=== PATIENT | female | born 1960 | race African-American/Black ===

== ENCOUNTER 2017-03-04 21:36 | Emergency (ER) | payer OTHER ==
[~2017-03-04] VITALS: Ht 175.3 cm; Wt 63.6 kg
[2017-03-04] MEDS ORDERED: TRAM50TA4 PO (21:48)
[2017-03-04] MEDS ORDERED: AMLO2.5T PO (21:48)
[2017-03-04] MEDS ORDERED: GABA-529 PO (21:48)
[2017-03-04] MEDS ORDERED: LORA10TA7 PO (21:48)
[2017-03-04] MEDS ORDERED: ASPI81TA39 PO (21:48)
[2017-03-04] MEDS ORDERED: METO25 PO (21:48)
[2017-03-04] MEDS ORDERED: PARO10TA89 PO (21:48)
[2017-03-04 21:58] LABS: GLUCOSE,POINT OF CARE 97 MG/DL (70-110)
[2017-03-04 23:02] VITALS: BP 132/79
== END 2017-03-04 23:46 | disposition home or self-care (01) ==
LOC: EMS 21:39
DX: S00.03XA Contusion of scalp, initial encounter (principal); F10.129 Alcohol abuse with intoxication, unspecified; I10 Essential (primary) hypertension; F14.90 Cocaine use, unspecified, uncomplicated; F17.210 Nicotine dependence, cigarettes, uncomplicated; Y90.3 Blood alcohol level of 60-79 mg/100 ml; W18.39XA Other fall on same level, initial encounter; Y93.89 Activity, other specified; Y92.89 Other specified places as the place of occurrence of the external cause; Y99.8 Other external cause status
CPT/HCPCS: 36415; 70450; 71010; 72125; 73030; 82962; 99285; G0480

== ENCOUNTER 2017-04-08 12:29 | Emergency (ER) | payer OTHER ==
[~2017-04-08] VITALS: Ht 175.3 cm; Wt 68.2 kg
[~2017-04-08 12:29] MED LIST: AMLO2.5T PO; ASPI81TA39 PO; GABA-529 PO; LORA10TA7 PO; METO25 PO; PARO10TA89 PO; TRAM50TA4 PO
[2017-04-08] MEDS ORDERED: HYDROCODONE/ACETAMINOPHEN 5-325 MG TABLET PO ONE (14:15)
[2017-04-08 17:24] VITALS: BP 132/88
== END 2017-04-08 18:30 | disposition home or self-care (01) ==
LOC: EMS 12:30
DX: S51.0 Open wound of elbow (principal); I10 Essential (primary) hypertension; F17.210 Nicotine dependence, cigarettes, uncomplicated; F14.90 Cocaine use, unspecified, uncomplicated; Y04.2XXA Assault by strike against or bumped into by another person, initial encounter; Y93.89 Activity, other specified; Y92.830 Public park as the place of occurrence of the external cause; Y99.8 Other external cause status
CPT/HCPCS: 99284

== ENCOUNTER 2017-04-08 20:56 | Emergency (ER) | payer OTHER ==
[~2017-04-08] VITALS: Ht 170.2 cm; Wt 70.5 kg
[2017-04-08 22:23] LABS: BASOPHILS % (AUTO) 0.5 % (0.0-2.0); EOSINOPHILS % (AUTO) 0.5 % (1.0-6.0); LYMPHOCYTES # (AUTO) 1.5 K/uL (1.0-4.8); LYMPHOCYTES % (AUTO) 30.3 % (22.0-44.0); MEAN CORPUSCULAR HEMOGLOBIN 32.7 pg (26.0-34.0); MEAN CORPUSCULAR HGB CONC 34.2 G/dL (31.0-37.0); MEAN CORPUSCULAR VOLUME 96 fL (80-100); MONOCYTES # (AUTO) 0.5 K/uL (0.1-1.0); MONOCYTES % (AUTO) 10.3 % (2.0-9.0); NEUTROPHILS % (AUTO) 58.4 % (40.0-70.0); PLATELET COUNT (AUTO) 196 K/uL (150-450); RED BLOOD CELL COUNT(AUTO) 3.66 MIL/uL (4.00-5.20); WHITE BLOOD COUNT (AUTO) 5.1 K/uL (4.5-11.0)
[2017-04-08 22:32] LABS: ANION GAP 9 mmol/L (8-16); CALCIUM, TOTAL 9.2 mg/dL (8.8-10.5); CARBON DIOXIDE 30 mmol/L (22-29); CHLORIDE 100 mmol/L (98-107); GLOMERULAR FILTR. RATE CALC > 60 mL/min (>60); SODIUM SERUM 139 mmol/L (136-145); UREA NITROGEN, BLOOD 16 mg/dL (7-18)
[2017-04-08 22:37] LABS: ALANINE AMINOTRANSFERASE 38 U/L (12-78); ALBUMIN 4.4 g/dL (3.4-5.0); ASPARTATE AMINOTRANSFERASE 30 U/L (15-37); BILIRUBIN,TOTAL 0.7 mg/dL (0.1-1.0); TOTAL PROTEIN, SERUM 8.1 g/dL (6.4-8.2)
[2017-04-09] MEDS ORDERED: POTASSIUM CHLORIDE 20 MEQ ER TABLET PO ONE (02:00)
[2017-04-09 05:16] VITALS: BP 131/82
== END 2017-04-09 05:16 | disposition home or self-care (01) ==
LOC: EMS 20:58
DX: M25.522 Pain in left elbow (principal); I10 Essential (primary) hypertension; F17.210 Nicotine dependence, cigarettes, uncomplicated; F14.90 Cocaine use, unspecified, uncomplicated; Y08.89XA Assault by other specified means, initial encounter; Y93.89 Activity, other specified; Y92.89 Other specified places as the place of occurrence of the external cause; Y99.8 Other external cause status
CPT/HCPCS: 99284